=== PATIENT | female | born 1960 | race Two or more races ===

== ENCOUNTER 2025-07-15 15:35 | Emergency (ER) | payer OTHER ==
[~2025-07-15] VITALS: Ht 165.1 cm; Wt 70.0 kg
--- NOTE | 2025-07-15 15:47 | ED.PDOC ---
Musculoskeletal HPI Comments 65-year-old female presents to the ER with a chief complaint of UE. Patient reports on tripping and falling onto a car hurting her left shoulder. Patient currently has left shoulder pain of a 10/10 on the pain scale. Denies any other associated symptoms at this time. Denies fevers chills night sweats nausea vomiting redness around the shoulder Denies previous surgeries to the shoulder or significant injury Numbness/tingling down the arm Denies changes, shortness of breath Chief Complaint: Upper Extremity Time Seen by MD: 16:00 Reviewed Notes: Nurses Notes, Medications, Allergies Allergies: Coded Allergies: NO KNOWN ALLERGIES (Unverified , 07/15/25) Home Meds Active Scripts Hydrocodone-Acetaminophen (Hydrocodone Bitartrate/AC 5-325 mg) 1 Tab Tab, 1 TAB PO Q6HPRN PRN for 5 Days, #20 TAB 0 Refills Prov:DANISHOLI NP 07/15/25 Information Source: Patient Mode of Arrival: Ambulatory Location: Left Extremity Location: Shoulder Timing: Hours Prehospital treatment: None Severity: Moderate Able to Move Extremity: Yes Bear Weight: Limited Pain: Moderate Hand Dominance: Right Mechanism: Other (Trauma via fall) Circumstances: Fall Onset of Symptoms: After Trauma Symptoms: Pain DVT Risk Factors: NONE Last Tetanus: Unknown Associated signs and symptoms: Shoulder pain Past Medical History PAST MEDICAL HISTORY: Denies Surgical History: Denies all surgeries TEST DRILLER History: No Pertinent TEST DRILLER History Family History Family History: Reviewed,noncontributory to illness, Unknown Social History Smoker: Non-Smoker Alcohol: Denies ETOH Use Drugs: Denies Drug Use Lives In: Home Constitutional: denies: chills, diaphoresis, fatigue, fever, malaise, sweats, weakness, others EENTM: denies: blurred vision, double vision, ear bleeding, ear discharge, ear drainage, ear pain, ear ringing, eye pain, eye redness, hearing loss, mouth pain, mouth swelling, nasal discharge, nose bleeding, nose congestion, nose pain, photophobia, tearing, throat pain, throat swelling, voice changes, others Respiratory: denies: cough, hemoptysis, orthopnea, SOB at rest, shortness of breath, SOB with excertion, stridor, wheezing, others Cardiovascular: denies: chest pain, dizzy spells, diaphoresis, Dyspnea on exertion, edema, irregular heart beat, left arm pain, lightheadedness, palpitations, PND, syncope, others Gastrointestinal: denies: abdomen distended, abdominal pain, blood streaked bowels, constipated, diarrhea, dysphagia, difficulty swallowing, hematemesis, melena, nausea, poor appetite, poor fluid intake, rectal bleeding, rectal pain, vomiting, others Genitourinary: denies: abnormal vagina bleeding, burning, dyspareunia, dysuria, flank pain, frequency, hematuria, incontinence, pain, , vagina discharge, urgency, others Neurological: denies: dizziness, fainting, headache, left sided numbness, left sided weakness, numbness, paresthesia, pre-existing deficit, right sided numbness, right sided weakness, seizure, speech problems, tingling, tremors, weakness, others Musculoskeletal: reports: others (Left shoulder pain); denies: back pain, gout, joint pain, joint swelling, muscle pain, muscle stiffness, neck pain Integumetry: denies: bruises, change in color, change in hair/nails, dryness, laceration, lesions, lumps, rash, wounds, others Allergic/Immunocompromised: denies: Difficulty Healing, Frequent Infections, Hives, Itching, others Hematologic/Lymphatic: denies: anemia, blood clots, easy bleeding, easy bruising, swollen glands, others Endocrine: denies: excessive hunger, excessive sweating, excessive thirst, excessive urination, flushing, intolerance to cold, intolerance to heat, unexplained weight gain, unexplained weight loss, others Psychiatric: denies: anxiety, bipolar disorder, depression, hopeless, panic disorder, schizophrenia, sleepless, suicidal, others All Other Systems: Reviewed and Negative Physical Exam Exam Comments No visible deformity, patient is in his sling for the left extremity, declines to move the shoulder due to the pain, neurovascular sensation intact, radial pulse 2+, cap refill less than three General Appearance: No Apparent Distress, Normal HEENT: Normal ENT Inspection, Pharynx Normal, TMs Normal Neck: Full Range of Motion, Non-Tender, Normal, Normal Inspection Respiratory: Chest Non-Tender, Lungs Clear, No Accessory Muscle Use, No Respiratory Distress, Normal Breath Sounds Cardiovascular: No Edema, No JVD, No Murmur, No Gallop, Normal Peripheral Pulses, Regular Rate/Rhythm Breast Exam: Deferred Gastrointestinal: No Organomegaly, Non Tender, No Pulsatile Mass, Normal Bowel Sounds, Soft Genitalia: Deferred Pelvic: Deferred Rectal: Deferred Extremities: No calf tenderness, Normal capillary refill, Normal inspection, Normal range of motion, Non-tender, No pedal edema Musculoskeletal : Apperance: Normal Neurologic: Alert, anatomy professor II-XII nml as Tested, No Motor Deficits, Normal Affect, Normal Mood, No Sensory Deficits Cerebellar Function: Normal Reflexes: Normal Skin: Dry, Normal Color, Warm Lymphatic: No Adenopathy Was a procedure done? Was a procedure done?: No Differential Diagnosis EXT Differential Diagnosis: Other X-Ray, Labs, Meds, VS Vital Signs Date Time Temp Pulse Resp B/P (MAP) Pulse Ox O2 Delivery O2 Flow Rate FiO2 07/15/25 17:44 78 16 97 Room Air 07/15/25 17:44 98.7 78 16 148/78 (101) 97 98.7 07/15/25 17:41 78 16 148/87 07/15/25 17:11 97 17 152/78 07/15/25 15:36 97.7 78 18 156/78 94 97.7 PATIENT: YAMILE JONACCT: [id number]: [id number] : 1960 LOC: ER ROOM / BED: / AGE / SEX: 65 / F ADM STATUS: REG ER SERVICE 23 ORDERING PHYSICIAN: OLI PENG NP PROCEDURE(s): LSHD2 - L SHOULDER 2+ VIEW XRAY REASON: fall ORDER NUMBER(s): [id number], ACCESSION NUMBER(s): [id number] EXAM: XY L SHOULDER 2+ VIEW XRAY HISTORY: fall COMPARISON: None TECHNIQUE: Four views of the left shoulder were performed. FINDINGS/IMPRESSION: 1. Left proximal humeral oblique versus spiral fracture involving the metaphysis and surgical neck, with lateral angulation and mild shortening. 2. Probable nondisplaced fracture of the greater tuberosity. This may be better characterized with noncontrast CT or MRI if clinically desired. 3. Acromioclavicular hypertrophy without loss of subacromial space. ATED BY: ORION ALMENDAREZ MD DICTATED DATE/TIME: 07/15/251658 SIGNED BY: ORION ALMENDAREZ MD SIGNED DATE/TIME: 07/15/251658 CC: X-Ray, Labs, Meds, VS Comment 65-year-old female presents to the ER with a chief complaint of UE. Patient arrives alert and oriented, ABC's intact, afebrile, vital signs stable, saturating well in room air Diagnostic imaging ordered by me and results interpreted by radiology :xray 1. Left proximal humeral oblique versus spiral fracture involving the metaphysis and surgical neck, with lateral angulation and mild shortening. 2. Probable nondisplaced fracture of the greater tuberosity. This may be better characterized with noncontrast CT or MRI if clinically desired. 3. Acromioclavicular hypertrophy without loss of subacromial space. Consulted with Dr. Padmini Barillas sling and outpatient follow up no red flags Checked the [employer] website, no history of narcotic use within the past year. Will prescribe [place] p.o. for pain management. Education provided on possible side effects of medication including drowsiness, nausea, respiratory distress, etc. Do not drive, operate heavy machinery or make legal decisions while taking medication. Follow-up with your PMD within 24 to 48 hours. On reevaluation, patient had symptomatic improvement. Patient is stable for discharge at this time. External notes reviewed. Test results and diagnostic imaging interpreted. All diagnostic findings, discharge care, education and instructions provided Follow-up with PCP in 2 to 3 days Patient verbalized understanding and agreed to treatment plan Vital signs stable, afebrile, no acute distress noted Patient ambulatory with strong steady gait Advised to return precautions for any new or worsening symptoms, return to ER immediately for re-evaluation Patient is aware that the purpose of this visit was for an acute medical emergency requiring emergent stabilization. Chronic conditions, including malignancies have not been ruled out. Patient is instructed to follow up with PCP as directed and discharge instructions for continued care and workup. If unable to arrange follow-up, patient is to return to the emergency department for reassessment. Patient (parent or legal guardian if applicable) was given verbal and written discharge instructions and acknowledges understanding. Time of 1ST Reevaluation: 16:30 Reevaluation 1ST: Unchanged Patient Education/Counseling: Diagnosis, Treatment, Prognosis Family Education/Counseling: No Family Present Departure 1 Departure Time of Disposition: 17:23 Impression: Primary Impression: Closed fracture of left proximal humerus Qualified Codes: S42.A - Unspecified fracture of upper end of left humerus, initial encounter for closed fracture Disposition: HOME / SELF CARE / HOMELESS Condition: Fair e-Prescriptions Hydrocodone-Acetaminophen (Hydrocodone Bitartrate/AC 5-325 mg) 1 Tab Tab 1 TAB PO Q6HPRN PRN for 5 Days, #20 TAB 0 Refills Prov: OLI PENG NP 07/15/25 Critical Care Note Critical Care Time?: No Stability Stability form required: No Heart Score Heart Score: Heart Score Response (Comments) Value History N/A 0 EKG N/A 0 Age N/A 0 Risk Factors N/A 0 Troponin N/A 0 Total 0 I personally scribed for OLI PENG NP ([email or web address]) on 07/15/25 at 15:46. Electronically submitted by Dale Ash ([employer] I personally scribed for OLI PENG NP (GILA) on 07/15/25 at 16:27. Electronically submitted by Dale Ash ([employer] OLI PENG NP Jul 15, 2025 15:46
--- NOTE | 2025-07-15 17:01 | DVH ---
EXAM: XY L SHOULDER 2+ VIEW XRAY HISTORY: fall COMPARISON: None TECHNIQUE: Four views of the left shoulder were performed. FINDINGS/IMPRESSION: 1. Left proximal humeral oblique versus spiral fracture involving the metaphysis and surgical neck, w ith lateral angulation and mild shortening. 2. Probable nondisplaced fracture of the greater tuberosity. This may be better characterized with n oncontrast CT or MRI if clinically desired. 3. Acromioclavicular hypertrophy without loss of subacromial space.
[2025-07-15] MEDS: MORPHINE SULFATE 4 MG/ML SYR/VIAL IM ONE (17:11)
[2025-07-15] MEDS ORDERED: HYDR-4902 PO (17:26)
[2025-07-15 17:44] VITALS: BP 148/78; PULSE 78; RESP 16; TEMP 98.7; O2SAT 97
== END 2025-07-15 17:46 | disposition home or self-care (01) ==
LOC: ER 15:35
DX: S42.202A Unspecified fracture of upper end of left humerus, initial encounter for closed fracture (principal); W01.0XXA Fall on same level from slipping, tripping and stumbling without subsequent striking against object, initial encounter; Y93.89 Activity, other specified; Y92.89 Other specified places as the place of occurrence of the external cause; Y99.8 Other external cause status
CPT/HCPCS: 73030; 96372; 99283; J2270